=== PATIENT | male | born 1970 | race Caucasian/White ===

== ENCOUNTER → 2023-04-02 08:14 | Outpatient (BNVA) | payer BC, SELFPAY | PROVIDERS: PCP Family Medicine; Visit Provider Family Medicine | DX: Z51.81 Encounter for therapeutic drug level monitoring (principal); Z13.220 Encounter for screening for lipoid disorders; E87.5 Hyperkalemia | CPT/HCPCS: 80053; 80061; 85025 ==

== ENCOUNTER 2024-03-11 07:05 | Day surgery (SDC) | payer BC, SELFPAY ==
--- NOTE | 2024-03-11 06:12 | P.HPUD_ITS ---
Surgery/Procedure H&P Update DATE OF PROCEDURE: March 11, 2024 DATE H&P PERFORMED: 02/18/24 H&P UPDATE INFORMATION: I have reviewed H&P completed within last 30 days, I have examined patient prior to procedure, No changes to prior documentation and [place] is in [facility] [place] indicated PLANNED PROCEDURE: Operation Date: 03/11/24 08:20 Proposed Procedures p Colonoscopy [id number], G0121, Z12.11(Not Applicable) - Clark Corcoran MD
--- NOTE | 2024-03-11 06:12 | W.PM.OPSUD ---
Surgery/Procedure H&P Update DATE OF PROCEDURE: March 11, 2024 DATE H&P PERFORMED: 02/18/24 H&P UPDATE INFORMATION: I have reviewed H&P completed within last 30 days, I have examined patient prior to procedure, No changes to prior documentation and H&P is in [facility] [place] EMR on date indicated PLANNED PROCEDURE: Operation Date: 03/11/24 08:20 Proposed Procedures p Colonoscopy 15650, G0121, Z12.11(Not Applicable) - Clark Corcoran MD
[2024-03-11 07:19] VITALS: BP 131/85; PULSE 74; RESP 18; TEMP 36.3; O2SAT 98
[2024-03-11 07:22] VITALS: BMI 29.8
[2024-03-11] MEDS: sodium chloride 0.9% 1,000 ML 30 ML IV (07:23)
--- NOTE | 2024-03-11 07:29 | P.ANESASSM_ITS ---
Pre-Anesthetic Assessment Height/Weight: Height 1.85 m Weight 102.512 kg Temp Pulse Resp BP Pulse Ox O2 Del Method 97.4 F L 74 18 131/85 98 Room Air 03/11/24 07:19 03/11/24 07:19 03/11/24 07:19 03/11/24 07:19 03/11/24 07:19 03/11/24 07:19 Preop Diagnosis: screening Operation Date: 03/11/24 08:20 Proposed Procedures p Colonoscopy 67751, G0121, Z12.11(Not Applicable) - Clark Corcoran MD Familial anesthetic complications: none Was Beta Rocío taken within 24 hours: N/A Was Clonidine taken within 24 hours: N/A Last intake: Intake Last Liquid Date 03/10/24 Last Liquid Time 23:00 Last Solid Date 03/09/24 Social No alcohol and No tobacco Exam alert, oriented x 3, clear to auscultation bilaterally and regular rate & rhythm Airway Submandibular: within normal limits Cervical ROM: within normal limits Mallampati: Class II Dentition: full Pulmonary None reported CV/HEM None reported None reported Hepatic None reported GI None reported Metabolic Hyperlipidemia [facility] [place] None reported Neuropsych None reported Anesthetic Plan ASA status: 2 Anesthesia: MAC Risk of > 500 ml blood loss (7ml/kg in children): No Medications/Allergies Home Medications Medication Instructions Recorded Confirmed Last Taken Type atorvastatin 40 mg tablet 40 mg PO DAILY #90 tabs 03/08/24 03/09/24 03/09/24 Rx Allergies Allergy/AdvReac Type Severity Reaction Status Date / Time No Known Allergies Allergy Verified 03/11/24 07:18 Current Medications Generic Name Dose Route Start Last Admin Trade Name Freq PRN Reason Stop Dose Admin Sodium Chloride 1,000 mls @ 30 mls/hr 03/11/24 07:15 03/11/24 07:23 Sodium Chloride 0.9% IV 30 mls/hr .Q24H GREGORY Administration PFSH Anesthesia Medical History Dyslipidemia Familial dyslipidemia - LDL 227 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
[2024-03-11 08:51] VITALS: BP 101/65; PULSE 75; RESP 16; TEMP 36.1; O2SAT 97
[2024-03-11 09:03] VITALS: BP 118/84; PULSE 68; RESP 16; O2SAT 98
[2024-03-11 09:23] VITALS: BP 117/89; PULSE 60; RESP 18; O2SAT 100
--- NOTE | 2024-03-11 09:30 | ANE.PACU2 ---
Inpatient post-anesthesia follow up: Airway intact: Yes Vital signs: Temperature 97 F Pulse Rate 60 Respiratory Rate 18 Blood Pressure 117/89 Pulse Oximetry 100 Oxygen Delivery Me thod Room Air Oxygen Flow Rate Fraction of Inspir ed Oxygen Hydration adequate: Yes Nausea and vomiting: No Pain level: 1 Mental status: Baseline
== END 2024-03-11 09:35 | disposition home or self-care (01) ==
PROVIDERS: PCP Family Medicine; Visit Provider Surgery
PROC: 0DJD8ZZ Inspection of Lower Intestinal Tract, Via Natural or Artificial Opening Endoscopic (ICD-10-PCS; CPT 45378; principal; 2024-03-11 08:20)
DX: Z12.11 Encounter for screening for malignant neoplasm of colon (principal); D12.0 Benign neoplasm of cecum; E78.5 Hyperlipidemia, unspecified
CPT/HCPCS: 45385; 88305; J2704; J7030